=== PATIENT | male | born 1965 | race Caucasian/White ===

== ENCOUNTER → 2019-03-27 | Outpatient (CLI) | payer OTHER ==
[~2019-03-27] VITALS: Ht 185 cm; Wt 115.0 kg
[~2019-03-27] MED LIST: CATHETER FLUSH 10 ML SYR IV PRN
[2019-03-27 13:48] VITALS: BP 181/89
[2019-03-27 13:57] VITALS: BP 211/58
--- NOTE | 2019-03-27 20:59 | STRESS TEST ---
DATE OF SERVICE: 03/27/2019 LEXISCAN MYOVIEW STRESS TEST Baseline heart rate is 59, baseline blood pressure 181/89. Baseline EKG is sinus rhythm with no ischemic changes. In summary, the patient was injected with 9.67 mCi of technetium-99 Myoview and the resting images were obtained. Then, the patient received 0.4 mg of Lexiscan followed by 28.7 mCi of technetium-99 Myoview. Throughout the test, there were no EKG changes. The resting and stress images were reviewed and compared in the short axis, horizontal long axis, and vertical long axis views. Review of the images showed diaphragmatic attenuation with decreased uptake involving the mid to apical inferior wall and inferoseptum with mild reversibility. SSS is 6, SDS 6, TID value 0.96. On the gated images, the left ventricle appeared to be in normal size with normal contractility. Calculated ejection fraction 54%. CONCLUSION: 1. The patient tolerated Lexiscan well. 2. Diaphragmatic attenuation with mild ischemia involving the mid to apical inferior wall and inferoseptum. 3. Normal left ventricular size with normal contractility. Calculated ejection fraction 54%. Job ID: [id number] DocumentID: [id number] Dictated Date: 03/27/2019 15:41:35 Specimen Accessioner Date: 03/27/2019 20:58:58 Dictated By: BARRINGTON NEWMAN MD
== END ==
LOC: CARD 11:54
PROVIDERS: ATTEND Internal Medicine Cardiovascular Disease
DX: I25.9 Chronic ischemic heart disease, unspecified (principal); I11.9 Hypertensive heart disease without heart failure; E78.2 Mixed hyperlipidemia; I73.9 Peripheral vascular disease, unspecified; E66.9 Obesity, unspecified
CPT/HCPCS: 78452; 93017; 93306

== ENCOUNTER 2019-05-08 07:42 | Day surgery (SDC) | payer OTHER ==
[2019-05-08] VITALS (9 sets, daily range): BP systolic 115–156; BP diastolic 69–80
[~2019-05-08] VITALS: Ht 185 cm; Wt 113.0 kg
[2019-05-08] MEDS ORDERED: LIDOCAINE 1% INJ 20 ML 20 ML VIAL ONE (07:43)
[2019-05-08] MEDS ORDERED: HEParin (CATH LAB) 2,000 ML IV ONE (07:43)
[2019-05-08] MEDS ORDERED: NS IV 1000 ML 1,000 ML ONE (07:43)
[2019-05-08] MEDS ORDERED: NS IV 1000 ML 1,000 ML IV SCH ×2 (07:48→11:05)
[2019-05-08 08:18] LABS: HEMOGLOBIN 13.6 G/DL (13.3-17.7); MEAN PLATELET VOLUME 9.5 FL (7.4-10.4); RED CELL DISTRIBUTION WIDTH 13.3 % (10.0-14.5); WHITE BLOOD COUNT 5.5 10^3/uL (4.3-11.0)
[2019-05-08] MEDS ORDERED: SIMV20TA26 PO ×2 (08:21→09:52)
[2019-05-08] MEDS ORDERED: CETI10TA17 PO (08:21)
[2019-05-08] MEDS ORDERED: TELM40TA3 PO (08:21)
[2019-05-08 08:33] LABS: PROTHROMBIN TIME PATIENT 13.1 SEC (12.2-14.7)
[2019-05-08 08:39] LABS: ALANINE AMINOTRANSFERASE 43 U/L (0-55); ALBUMIN 4.6 GM/DL (3.2-4.5); ALKALINE PHOSPHATASE 55 U/L (40-136); BILIRUBIN,TOTAL 0.4 MG/DL (0.1-1.0); BUN/CREATININE RATIO 20; CALCIUM 9.7 MG/DL (8.5-10.1); CARBON DIOXIDE 25 MMOL/L (21-32); CHLORIDE 106 MMOL/L (98-107); CREATININE SERUM 0.88 MG/DL (0.60-1.30); GFR ESTIMATED > 60; GLUCOSE 95 MG/DL (70-105); POTASSIUM 4.7 MMOL/L (3.6-5.0); SODIUM 140 MMOL/L (135-145); TOTAL PROTEIN 7.3 GM/DL (6.4-8.2)
--- NOTE | 2019-05-08 08:41 | Diagnostic Imaging Report ---
INDICATION: Preop for heart catheterization. TIME OF EXAM: 8:04 AM No prior studies are available for comparison. FINDINGS: The heart size is normal. The pulmonary vascularity is unremarkable. The lungs are clear. No infiltrate, effusion or pneumothorax is detected. IMPRESSION: No acute cardiopulmonary process is detected. Dictated by: Dictated on workstation # [id number]
[2019-05-08] MEDS ORDERED: HEParin 1000 UNIT/ML (10ML VIAL) FOR BOLUS ONE (09:39)
[2019-05-08] MEDS ORDERED: fentaNYL INJECTION 100 MCG/2 ML AMP ONE (09:39)
[2019-05-08] MEDS ORDERED: MIDAZOLAM 5 MG/5 ML (VERSED) VIAL ONE (09:39)
[2019-05-08] MEDS ORDERED: VERAPAMIL 5 MG/2 ML (CALAN) VIAL IV ONE (09:39)
[2019-05-08] MEDS ORDERED: NITRO DRIP 25000 MCG/D5W 250 ML IV ONE (09:40)
--- NOTE | 2019-05-08 09:52 | NUR ---
SPOKE WITH THE PT, USED THE MEDICATION LIST SENT OVER FROM THE DR'S OFFICE AND CALLING [facility] AND DR. ERNST'S OFFICE TO COMPLETE THE MED REC. PT LISTED ZYRTEC, SIMVASTATIN AND TELMISARTAN HIS MEDS. SIMVASTATIN: WHEN I CALLED [facility] THEY LAST FILLED THIS ON 07-08-2018 #90 (AND THE FILL BEFORE THAT WAS ON 04-07-2018 #90). WHEN I WENT BACK TO INTERVIEW THE PT HE SAID HE DOES TAKE IT DAILY AND DOESNT KNOW WHEN [facility] HAS JUNE HIS LAST FILL DATE. HIS DID SPEAK UP AND SAY THAT SHE HAD PREVIOUSLY TAKEN SIMVASTATIN AND THINKS HE HAD BEEN USING HER BUILT UP STOCK SHE HAD. FOR THIS REASON I DID KEEP IT ON THE MED REC. 01-07-2019 TELMISARTAN: PT DID SAY HE WAS A LITTLE BEHIND ON THIS REFILL, BUT DOES NORMALLY TAKE IT EVERYDAY. OTC MED: ZYRTEC
--- NOTE | 2019-05-08 11:06 | Cardiac Procedure Note-CS/ASA ---
Pre-Procedure Note Pre-Op Procedure Note H&P Reviewed The H&P was reviewed, patient examined and no changes noted. Date H&P Reviewed: May 08, 2019 Time H&P Reviewed: 10:00 Conscious Sedation Pre-Proced Time 10:00 ASA Score 3 For ASA 3 and 4: Consider anesthesia and medical clearance. Also, for patients with a history of failed moderate sedation consider anesthesia. Airway Lungs Heart ASA score ASA 1: a normal healthy patient ASA 2: a patient with a mild systemic disease (mid diabetes, controlled hypertension, obesity x ASA 3: a patient with a severe systemic disease that limits activity (angina, COPD, prior Myocardial infarction) ASA 4: a patient with an incapacitating disease that is a constant threat to life (CHF, renal failure) ASA 5: a moribund patient not expected to survive 24 hrs. (ruptured aneurysm) ASA 6: a declared brain- patient whose organs are being harvested. For emergent operations, add the letter E after the classification Mallampati Classification Grade 3 Sedation Plan Analgesia, Amnesia, Plan communicated to team members, Discussed options with patient/fam, Discussed risks with patient/fam The patient is an appropriate candidate to undergo the planned procedure, sedation, and anesthesia. The patient immediately re-assessed prior to indication. BARRINGTON NEWMAN MD May 08, 2019 11:06 am
--- NOTE | 2019-05-08 11:07 | Discharge Inst-Post CATH ---
Discharge Inst-CATH/EP Problems Reviewed?: Yes Post Cardiac Cath/EP D/C Inst Follow Up/Plan Appointment with Dr. NEWMAN's office in 2-4 weeks <b>CARDIAC CATH/EP PROCEDURE DISCHARGE INSTRUCTIONS</b> ACTIVITY * Go Home directly and rest. * Limit activity of the leg (or wrist if it was used) for 7 days including aerobics, swimming, jogging, bicycling, etc. * Restrict stair-climbing for 7 days if possible, if not, climb up with your non-cath leg, then bring together on the same step. * Avoid lifting, pushing, pulling or excessive movement of the affected extremity for 7 days. * Customary sexual activity may be resumed after 2 days-use caution not to use a position that strains or causes pain to the affected extremity. * No driving for 24 hours. * NO SMOKING. * Avoid straining for bowel movements for 7 days. * Gentle walking on level ground is allowed. * Returning to work will depend on the type of procedure and the results. Your doctor will discuss this with you. CALL YOUR DOCTOR FOR ANY OF THE FOLLOWING: *If bleeding from the puncture site occurs- Apply gentle pressure to site with clean cloth and call your doctor or EMS. * If a knot or lump forms under the skin, increases in size, or causes pain. * If bruising appears to be worsening or moving further down your leg instead of disappearing. * Temperature above 101 F. CARE OF YOUR GROIN INCISION; * Bruising or purple discoloration of the skin near the puncture site is common. * You may shower only, no bathtub bathing for 5 days. Be careful to avoid slipping as your leg may feel stiff. * If a closure device was used on your femoral artery, please see the attached guide regarding care of the device and your leg. * Leave dressing on FOR 24 hours. CARE OF YOUR WRIST INCISION; * Bruising or purple discoloration of the skin near the puncture site is common. * You may shower. * DO NOT submerge wrist. * Leave dressing on FOR 24 hours. BARRINGTON NEWMAN MD May 08, 2019 11:07 am
--- NOTE | 2019-05-08 11:13 | Cardiac Cath Report ---
Cardiac Cath Report Physician (s)/Food And Beverage Director (s) Physician BARRINGTON NEWMAN MD Pre-Procedure Diagnosis Pre-Procedure Diagnosis: coronary artery disease Post-Procedure Note Procedure Start Date: May 08, 2019 Name of Procedure: Left heart catheterization Findings/Procedure Note PROCEDURE NOTE: After explaining the procedure to the patient, all pros and cons were explained, all questions were answered. The patient signed the consent and then he was placed on the cardiac catheterization laboratory. Groin was prepped SL fashion local anesthesia was used. Sheath placed in the right radial, Tiline catheter was used, advanced to the left ventricle, pressure measured, coronary angiogram was done. 3000 units of heparin were given, FL 3.5 guide was used, BMW wire was advanced in the circumflex artery, there was a borderline lesion in the left main and ostial circumflex, I was planning to do IVUS, catheter did not connect properly to the machine, we opened the second catheter, still did not recognize by the machine, it appear to be malfunctioning. Straightening the circumflex with the BMW wire made the lesion look significantly better. I decided to abort at that time At the end of the procedure the sheath was removed. Vascular band was used FINDINGS: Hemodynamics LV 108/17, end-diastolic pressure of 17 Aorta 106/63 mean of 83 ANATOMY: Left Main appear to have 50 percent distal stenosis, failed attempt to do IVUS due to machine malfunctioning Left Anterior Descending has mild to moderate disease nonobstructive disease Left Circumflex has 50 percent ostial stenosis Right Coronory Artery is dominant artery with 40 percent proximal stenosis, 50 percent mid stenosis LV Gram was not done, pressure was measured CONCLUSION: 1. 50 percent distal left main artery stenosis, failed IVUS due to machine malfunctioning 2. 50 percent ostial circumflex artery 3. 50 percent midright coronary artery stenosis, 40 percent proximal right coronary artery stenosis DISCUSSION AND RECOMMENDATION: Medical therapy is recommended, no intervention is warranted. Patient will require reevaluation with coronary angiogram and possible IVUS to the LAD in the future Anesthesia Type: Conscious Sedation Estimated blood loss (mL): 25 ml Contrast Amount: 112 ml Total Radiation Dose: 1155 mGy Post-Procedure Diagnosis Post-operative diagnosis: Coronary artery disease Hypertension Hyperlipidemia PVCs BARRINGTON NEWMAN MD May 08, 2019 11:13
[2019-05-08] MEDS ORDERED: ATOR10TA PO (11:36)
[2019-05-08] MEDS ORDERED: METO-351 PO (11:36)
[2019-05-08] MEDS ORDERED: ONDANSETRON 4 MG/2 ML (SDV) Z0FRAN IVP ONE (12:00)
== END 2019-05-08 16:05 | disposition home or self-care (01) ==
LOC: CATH 07:42 → CSD 11:30 → CATH 16:05
PROVIDERS: ATTEND Internal Medicine Cardiovascular Disease
DX: I25.10 Atherosclerotic heart disease of native coronary artery without angina pectoris (principal); I10 Essential (primary) hypertension; I73.9 Peripheral vascular disease, unspecified; I82.502 Chronic embolism and thrombosis of unspecified deep veins of left lower extremity; I49.3 Ventricular premature depolarization; E78.2 Mixed hyperlipidemia; E66.09 Other obesity due to excess calories; Z87.891 Personal history of nicotine dependence; Z68.33 Body mass index [BMI] 33.0-33.9, adult; Z88.2 Allergy status to sulfonamides; Z79.899 Other long term (current) drug therapy; Z83.3 Family history of diabetes mellitus; Z82.49 Family history of ischemic heart disease and other diseases of the circulatory system
CPT/HCPCS: 36415; 71045; 80053; 85027; 85610; 85730; 87081; 93458

== ENCOUNTER 2021-07-15 08:30 | Day surgery (SDC) | payer BC, OTHER ==
[~2021-07-15] VITALS: Ht 185.4 cm; Wt 117.2 kg
[2021-07-15] VITALS (9 sets, daily range): BP systolic 113–154; BP diastolic 67–85
--- NOTE | 2021-07-15 08:08 | Pre-Op Note & Conscious Sedat ---
Pre-Operative Progress Note H&P Reviewed The H&P was reviewed, patient examined and no changes noted. Date H&P Reviewed: Jul 15, 2021 Time H&P Reviewed: 08:08 Pre-Op Diagnosis: Coronary artery disease with angina pectoris Conscious Sedation Pre-Proced ASA Score 2 For ASA 3 and 4: Consider anesthesia and medical clearance. Also, for patients with a history of failed moderate sedation consider anesthesia. Airway Lungs Heart ASA score ASA 1: a normal healthy patient ASA 2: a patient with a mild systemic disease (mid diabetes, controlled hypertension, obesity ASA 3: a patient with a severe systemic disease that limits activity (angina, COPD, prior Myocardial infarction) ASA 4: a patient with an incapacitating disease that is a constant threat to life (CHF, renal failure) ASA 5: a moribund patient not expected to survive 24 hrs. (ruptured aneurysm) ASA 6: a declared brain- patient whose organs are being harvested. For emergent operations, add the letter E after the classification Mallampati Classification Grade 3 Sedation Plan Analgesia, Amnesia, Plan communicated to team members, Discussed options with patient/fam, Discussed risks with patient/fam The patient is an appropriate candidate to undergo the planned procedure, sedation, and anesthesia. The patient immediately re-assessed prior to indication. CM LAWSON JR, MD Jul 15, 2021 08:08
[~2021-07-15 08:30] MED LIST changes: +ACET325T49 PO; +ASPIRIN 81 MG CHEW (CHILDREN'S ASA) ONE; +ASPIRIN 81 MG CHEW (CHILDREN'S ASA) PO ONE; +ATOR10TA PO; +ATOR10TA66 PO; +CETI10TA17 PO; +CLN.1T PO; +HEParin (CATH LAB) 2,000 ML IV ONE; +HEParin 1000 UNIT/ML (10ML VIAL) FOR BOLUS ONE; +LIDOCAINE 1% INJ 50 ML (XYLOCAINE) VIAL ONE; +MELA5TAB19 PO; +METO-351 PO; +MIDAZOLAM 5 MG/5 ML (VERSED) VIAL ONE; +MTP25TSR PO; +MULT-1136 PO; +NITRO DRIP 25000 MCG/D5W 250 ML IV ONE; +NS IV 1000 ML 1,000 ML IV ONE; +OMG1KC PO; +SIMV20TA26 PO; +TELM1TAB37 PO; +TELM40TA6 PO; +VERAPAMIL 5 MG/2 ML (CALAN) VIAL IV ONE; +fentaNYL INJ 100 MCG/2 ML AMP ONE
[2021-07-15] MEDS ORDERED: ADENOSINE 6 MG/2 ML (ADENOCARD) VIAL IV ONE (09:14)
[2021-07-15] MEDS ORDERED: NS (IVPB) 250 ML ONE (09:14)
[2021-07-15] MEDS ORDERED: NS IV 1000 ML 1,000 ML IV SCH (10:15)
--- NOTE | 2021-07-15 10:24 | Cardiac Cath Report ---
CARDIAC CATHETERIZATION DATE OF PROCEDURE: 07/15/2021 INDICATION: Coronary artery disease with angina pectoris. HISTORY: The patient is a 56 year old male with known coronary artery disease involving the distal left main coronary artery and proximal and mid right coronary artery that has not required revascularization in the past. Due to some symptoms consistent with possible angina in the setting of known coronary artery disease, he is now referred for further evaluation with a cardiac catheterization. PROCEDURES PERFORMED: 1. Left heart catheterization with hemodynamic measurements. 2. Diagnostic [place] coronary angiography. 3. Fractional flow reserve measurement of distal left main coronary artery. 4. Intravascular ultrasound of left main coronary artery. 5. Fractional flow reserve measurement of right coronary artery. PROCEDURE DESCRIPTION: After informed consent and in the fasting state, left heart catheterization was performed through the right radial artery utilizing a 6 [place] system by percutaneous approach. A 5 [place] JR4 catheter was utilized to interrogate the left ventricle and right coronary artery. A 6 [place] CLS 3.5 guide catheter was utilized to interrogate the left coronary artery and for the FFR and IVUS of the left main coronary artery. A 6 [place] FR4 guide catheter was utilized for the FFR of the right coronary artery.. All catheters were exchanged over a guidewire. Following the procedure, a vascular band was applied to the radial artery access site and the sheath was removed with good hemostasis. RESULTS: HEMODYNAMICS: The aortic pressure was 106/63 mmHg. The left ventricular pressure was 121/0 mmHg with a left ventricular end-diastolic pressure of 16 mmHg. There was no significant pressure gradient upon pullback across aortic valve. CORONARY ANGIOGRAPHY: Left main coronary artery: There was a calcified 70% stenosis in the distal segment best seen in the cranial views. There was JOSSUE-3 flow. This appeared to form a trifurcation lesion with the left anterior descending, left circumflex and a ramus intermedius branch. Left anterior descending coronary artery: Free of significant disease. There was a large first diagonal branch that contained a long 70% stenosis in its proximal segment with JOSSUE-3 flow. Left circumflex coronary artery: This was essentially a large first obtuse marginal branch which was free of significant disease. Ramus intermedius branch: There was a moderate sized ramus intermedius branch which was free of significant disease. Right coronary artery: Dominant and there was an eccentric 60% stenosis in the proximal segment and another eccentric 60% stenosis in the mid segment with JOSSUE-3 flow. FRACTIONAL FLOW RESERVE OF LEFT MAIN CORONARY ARTERY: I successfully crossed the stenosis in the distal left main coronary artery with an FFR wire. The system was balanced and equalized. Approximately 200 mcg of coronary adenosine was then administered through the guide catheter. The minimum FFR was 1. This is not hemodynamically significant. INTRAVASCULAR ULTRASOUND OF LEFT MAIN CORONARY ARTERY: Intravascular ultrasound was carried out on the left main coronary artery through a 6 [place] CLS 3.5 guide catheter. Successfully crossed the stenosis with an FFR wire. I subsequently performed intravascular ultrasound with an [employer] IVUS catheter. There was a calcified lesion in the distal segment of the left main coronary artery. The minimum luminal diameter was 3.1 x 4.1 mm. The reference vessel diameter for normal vessel was 4.5 x 5.2 mm. This yields a percent diameter stenosis of approximately 69-79%. FRACTIONAL FLOW RESERVE OF RIGHT CORONARY ARTERY: I successfully crossed the stenosis in the proximal and mid right coronary arteries with an FFR wire. The system was balanced and equalized. Approximately 100 mcg of intracoronary adenosine was administered. The FFR was 0.87. This is not dynamically significant. No intervention was performed. IMPRESSION: 1. Normal central aortic pressure with elevated left ventricular end-diastolic pressure. 2. Moderate to severe two-vessel coronary artery disease involving the distal left main coronary artery, a diagonal branch and the dominant right coronary artery as outlined above. However, flow measurements of the right coronary artery lesions were nonsignificant. 2. Intravascular ultrasound of the stenosis in the distal left main coronary artery healed 0% diameter stenosis of approximately 70-80%. 3. His last known ejection fraction was 55-65% by echocardiogram performed on 03/27/2019. Certain portions of this document may have been dictated utilizing voice recognition technology. Inherent to this technology, typographical and grammatical errors may exist. As much as I am diligent to identify and correct these mistakes, some errors may remain in the document. CM LAWSON JR, MD Jul 15, 2021 10:24
== END 2021-07-15 13:45 | disposition home or self-care (01) ==
LOC: CATH 08:30 → SDC 10:23 → CATH 13:45
PROVIDERS: ATTEND Internal Medicine Cardiovascular Disease
DX: I25.10 Atherosclerotic heart disease of native coronary artery without angina pectoris (principal); I10 Essential (primary) hypertension; E78.5 Hyperlipidemia, unspecified; R22.42 Localized swelling, mass and lump, left lower limb; E66.9 Obesity, unspecified; E78.2 Mixed hyperlipidemia; Z79.899 Other long term (current) drug therapy; Z87.891 Personal history of nicotine dependence; Z68.34 Body mass index [BMI] 34.0-34.9, adult
CPT/HCPCS: 92978; 93458; 93571 ×2; C1753; C1887 ×2; C1894

== ENCOUNTER → 2021-08-30 | Outpatient (CLI) | payer BC ==
[~2021-08-30] MED LIST changes: -ASPIRIN 81 MG CHEW (CHILDREN'S ASA) ONE; -ASPIRIN 81 MG CHEW (CHILDREN'S ASA) PO ONE; -CATHETER FLUSH 10 ML SYR IV PRN; -HEParin (CATH LAB) 2,000 ML IV ONE; -HEParin 1000 UNIT/ML (10ML VIAL) FOR BOLUS ONE; -LIDOCAINE 1% INJ 50 ML (XYLOCAINE) VIAL ONE; -MIDAZOLAM 5 MG/5 ML (VERSED) VIAL ONE; -NITRO DRIP 25000 MCG/D5W 250 ML IV ONE; -NS IV 1000 ML 1,000 ML IV ONE; -VERAPAMIL 5 MG/2 ML (CALAN) VIAL IV ONE; -fentaNYL INJ 100 MCG/2 ML AMP ONE
== END ==
LOC: LABNPT 08:32
PROVIDERS: ATTEND Thoracic Surgery (Cardiothoracic Vascular Surgery)
DX: Z01.810 Encounter for preprocedural cardiovascular examination (principal); Z01.818 Encounter for other preprocedural examination; I25.10 Atherosclerotic heart disease of native coronary artery without angina pectoris; Z20.822 Contact with and (suspected) exposure to COVID-19
CPT/HCPCS: 87636

== ENCOUNTER 2021-09-10 23:52 | Emergency (ER) | payer BC ==
[~2021-09-10] VITALS: Ht 185 cm; Wt 115.2 kg
[2021-09-11 00:47] LABS: BASOPHILS # (AUTO) 0.1 10^3/uL (0.0-0.1); BASOPHILS % (AUTO) 0 % (0-10); EOSINOPHILS # (AUTO) 0.1 10^3/uL (0.0-0.3); EOSINOPHILS % (AUTO) 1 % (0-10); HEMATOCRIT 26 % (40-54); HEMOGLOBIN 8.4 g/dL (13.3-17.7); LYMPHOCYTES # (AUTO) 1.2 10^3/uL (1.0-4.0); LYMPHOCYTES % (AUTO) 7 % (12-44); MEAN CORPUSCULAR HEMOGLOBIN 32 pg (25-34); MEAN CORPUSCULAR HGB CONC 33 g/dL (32-36); MEAN CORPUSCULAR VOLUME 99 fL (80-99); MEAN PLATELET VOLUME 8.6 fL (9.0-12.2); MONOCYTES # (AUTO) 1.2 10^3/uL (0.0-1.0); MONOCYTES % (AUTO) 7 % (0-12); NEUTROPHILS # (AUTO) 14.8 10^3/uL (1.8-7.8); NEUTROPHILS % (AUTO) 79 % (42-75); PLATELET COUNT 503 10^3/uL (130-400); WHITE BLOOD COUNT 18.7 10^3/uL (4.3-11.0)
[2021-09-11 00:48] LABS: BILIRUBIN,URINE NEGATIVE (NEGATIVE); CLARITY,URINE CLEAR; COLOR,URINE YELLOW; GLUCOSE, URINE (UA) NEGATIVE (NEGATIVE); KETONES,URINE NEGATIVE (NEGATIVE); LEUKOCYTE ESTERASE ,URINE NEGATIVE (NEGATIVE); NITRITE,URINE NEGATIVE (NEGATIVE); PROTEIN,URINE NEGATIVE (NEGATIVE)
[2021-09-11 00:55] LABS: ALBUMIN 3.4 GM/DL (3.2-4.5); POTASSIUM 4.9 MMOL/L (3.6-5.0)
[2021-09-11 00:56] LABS: CALCIUM 9.1 MG/DL (8.5-10.1)
[2021-09-11 00:57] LABS: TOTAL PROTEIN 6.4 GM/DL (6.4-8.2)
[2021-09-11 00:59] LABS: BILIRUBIN,TOTAL 0.5 MG/DL (0.1-1.0); INR 1.5 (0.8-1.4); PROTHROMBIN TIME PATIENT 18.2 SEC (12.2-14.7)
[2021-09-11 01:01] LABS: CREATININE SERUM 0.81 MG/DL (0.60-1.30)
[2021-09-11 01:04] LABS: MAGNESIUM 2.3 MG/DL (1.6-2.4)
[2021-09-11 01:18] LABS: NEUTROPHILS % (MANUAL) 81 %
[2021-09-11 01:19] LABS: ANISOCYTOSIS SLIGHT; ATYPICAL LYMPHOCYTES 1 %; EOSINOPHILS % (MANUAL) 2 %; LYMPHOCYTES % (MANUAL) 6 %; METAMYELOCYTES % 2 %; MICROCYTOSIS SLIGHT; MONOCYTES % (MANUAL) 5 %; MYELOCYTES % 3 %; NUCLEATED RED BLOOD CELLS 3; PLATELET CLUMPS SOME CLUMPING SEEN; POIKILOCYTOSIS SLIGHT; POLYCHROMASIA SLIGHT
[2021-09-11 01:20] LABS: BACTERIA,URINE TRACE /HPF; HYALINE CASTS, URINE 0-2 /LPF; WBC,URINE 0-2 /HPF
[2021-09-11] MEDS ORDERED: fentaNYL INJ 100 MCG/2 ML AMP IVP STA (01:41)
--- NOTE | 2021-09-11 01:43 | ED Respiratory ---
General Chief Complaint: Respiratory Problems Stated Complaint: CP,COUGH,POST TRIPLE BYPASS Nursing Triage Note: TO ROOM PER WC W/ C/O SOB, AND CP. 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 PT HAD CABG DONE @ [facility] ON 08-31, AND WAS DC'D YESTERDAY. Source: patient History of Present Illness Date Seen by Provider: Sep 11, 2021 Time Seen by Provider: 00:01 Initial Comments PT ARRIVES VIA POV FROM HOME PT HAD 3 VESSEL CABG AT [facility] ON 08/31/21, AND DISMISSED TO HOME YESTERDAY 09/09/21. SURGERY WAS DONE BY DR. JIMENEZ / [facility] SURGEON. PT IS TO FOLLOW UP WITH DR. JOYA 09/30/21. PT ALSO IS TO FOLLOW WITH DR. NEWMAN LOCALLY, WELL DR. ERNST HIS PCP, AND HOME HEALTH WAS SET UP WELL. PT DID NOT HAVE AN PA PRIOR TO CABG. DID DEVELOP AFIB DURING HOSPITALIZATION PT WAS DISMISSED ON AUGMENTIN FOR RESPIRATORY INFECTION, PT STATES IT SHOWED INFECTION IN HIS SPUTUM. PT DENIES FEVER /SWEATS/CHILLS HAS HAD INCREASED COUGH AND SHORTNESS OF BREATH AND RIGHT ANTERIOR CHEST PAIN SINCE 1899 TONIGHT. C/O SEVERE PAIN IN CHEST WITH COUGHING, AND STATES IT FEELS LIKE SOMETHING IS MOVING IN HIS CHEST--STATES IT FEELS LIKE A BROKEN RIB ON THE RIGHT ANTERIOR CHEST. HAS HAD INCREASED LEG SWELLING WELL--LEFT LEG IS ALWAYS MORE SWOLLEN THAN RIGHT LEG DUE TO INJURY WITH SUBSEQUENT DVT IN LEFT LEG A TEEN. HAS HAD SOME SEROUS-TYPE WEEPING FROM LEG INCISIONS--BILATERAL THIGH WOUNDS, WITH RIGHT > LEFT. NO INCREASED PAIN, REDNESS OR SWELLING AROUND THE WOUNDS. NO NAUSEA/VOMITING, AND IS ABLE TO EAT AND DRINK PT IS URINATING NORMALLY--MORE THAN NORMAL SINCE BEING STARTED ON LASIX. WAS NOT DISMISSED ON HOME O2 NEW MEDICATIONS INCLUDE: AMIODARONE, LASIX, ELIQUIS, HYDROCODONE AND AUGMENTIN. METOPROLOL DOSE WAS LOWERED. PT HAS HAD COVID-19 VACCINE X 1--ASTON/ASTON--OVER 1 YEAR AGO NO BOOSTER VACCINE NO FLU VACCINE. PCP: ADDY ROA HELP DESK SPECIALIST: DR. NEWMAN Allergies and Home Medications Allergies Coded Allergies: Sulfa (Sulfonamide Antibiotics) (Unverified Allergy, Unknown, 03/27/19) Patient Home Medication List Home Medication List Reviewed: Yes Acetaminophen (Acetaminophen) 325 Mg Tablet, 650 MG PO PRN , (Reported) Entered as Reported by: TORRI ALLRED on 07/15/21801 Atorvastatin Calcium (Atorvastatin Calcium) 10 Mg Tablet, 10 MG PO HS, (Reported) Entered as Reported by: TORRI ALLRED on 07/15/21801 Clonidine HCl (Clonidine HCl) 0.1 Mg Tablet, 0.1 MG PO BID, (Reported) Entered as Reported by: TORRI ALLRED on 07/15/21801 Melatonin (Melatonin) 5 Mg Tab.rapdis, 10 MG PO HS, (Reported) Entered as Reported by: TORRI ALLRED on 07/15/21801 Metoprolol Succinate (Metoprolol Succinate) 25 Mg Tab.er.24h, 25 MG PO DAILY, (Reported) Entered as Reported by: TORRI ALLRED on 07/15/21801 Multivitamin (Multivitamin) 1 Each Tablet, 1 EACH PO DAILY, (Reported) Entered as Reported by: TORRI ALLRED on 07/15/21801 Omro 3 Polyunsat Fatty Acids (Fish Oil 1,000 mg Capsule) 1,000 Mg Cap, 3,000 MG PO DAILY, (Reported) Entered as Reported by: TORRI ALLRED on 07/15/21801 Telmisartan/Hydrochlorothiazid (Telmisartan-Hctz 80-25 mg Tab) 1 Each Tablet, 1 EACH PO DAILY, (Reported) Entered as Reported by: TORRI ALLRED on 07/15/21801 Review of Systems Review of Systems Constitutional: no symptoms reported; No chills, No diaphoresis, No dizziness, No fever EENTM: no symptoms reported Respiratory: see HPI, cough, short of breath Cardiovascular: see HPI, chest pain, edema, Hx of Intervention; No palpitations, No syncope; vascular heart diseas Gastrointestinal: no symptoms reported; No abdominal pain, No nausea, No vom iting Genitourinary: no symptoms reported Musculoskeletal: see HPI Skin: other (WEEPING FROM LEG INCISIONS) Psychiatric/Neurological: No Symptoms Reported Hematologic/Lymphatic: No Symptoms Reported Immunological/Allergic: no symptoms reported Past Lczkgml-Lkuntq-Zcduyg Hx Patient Social History Tobacco Use?: No Use of E-Cig and/or Vaping dev: No Substance use?: No Alcohol Use?: No Immunizations Up To Date Tetanus Booster (TDap): Less than 5yrs First/Initial COVID19 Vaccinat: 2020 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: [employer] Past Medical History Surgeries: Yes (CARDIAC CATHS; 3 VESSEL CABG 08/31/21 AT [facility]) Cardiac, CABG, Orthopedic Respiratory: No Currently Using CPAP: No Cardiac: Yes (DVT L LEG TEEN POST INJURY-CHRONIC LEG SWELLING L>R;) Atrial Fibrillation, Chronic Edema/Swelling, Coronary Artery Disease, Deep Vein Thrombosis, High Cholesterol, Hypertension Neurological: No Genitourinary: No Gastrointestinal: No Musculoskeletal: Yes (FX LEFT KNEE/FEMUR 1978) Arthritis, Fractures Endocrine: No HEENT: No Cancer: No Psychosocial: No Integumentary: No Blood Disorders: No Physical Exam Vital Signs - First Documented 09/11/21 09/11/21 00:00 04:10 Temp 36.6 Pulse 68 Resp 24 B/P (MAP) 129/68 (88) Pulse Ox 99 O2 Delivery Nasal Cannula O2 Flow Rate 2.00 Capillary Refill : Less Than 3 Seconds Height: '" Weight: lbs. oz. kg; 33.00 BMI Method: General Appearance: WD/WN, no apparent distress, other (HOLDING STUFFED ANIMAL TO CHEST, MOVES SLOWLY. MILDLY DYSPNEIC WITH MINIMAL EXERTION) HEENT: PERRL/EOMI Neck: normal inspection Respiratory: decreased breath sounds (IN BASES), other (MILDLY DYSPNEIC) Cardiovascular: regular rate, rhythm, no JVD, no murmur, other (CHEST WOUNDS DRESSINGS CLEAN/DRY/INTACT. ) Gastrointestinal: non tender, soft Extremities: normal range of motion, normal capillary refill, pedal edema (3+ EDEMA TO RIGHT LEG; 4+ EDEMA TO LEFT LEG; SURGICAL WOUNDS TO BILAT THIGHS WITH MILD SEROUS WEEPING--R > L; NO SURROUDING ERYTHEMA OR SIGNIFICANT TENDERNESS. OTHER LEG WOUNDS HEALING WITHOUT SIGNS OF INFECTION. 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 nml as tested, no motor/sensory deficits, alert, normal mood/affect, oriented x 3 Skin: normal color, warm/dry Focused Exam Sepsis Stage: Sepsis Possible Source: Pulmonary Time of Focused Exam: 01:40 Respiratory: Other (DIMINSHED IN BASES) Cardiovascular: Regular Rate, Rhythm, No Murmur Capillary Refill: Less Than 3 Seconds Skin: normal color, warm/dry Within 3hrs of presentation: Admin fluids, Admin ABX, Blood cultures prior to ABX's, Focus exam, Lactate level Progress/Results/Core Measures Suspected Sepsis SIRS Temperature: Pulse: 68 Respiratory Rate: 24 Laboratory Tests 09/11/21 00:30: White Blood Count 18.7H Blood Pressure 129 /68 Mean: 88 Laboratory Tests 09/11/21 00:30: Creatinine 0.81, INR Comment 1.5H, Platelet Count 503H, Total Bilirubin 0.5 Results/Orders Lab Results Laboratory Tests Test 09/11/21 00:30 09/11/21 00:40 Range/Units White Blood Count 18.7 H 4.3-11.0 10^3/uL Red Blood Count 2.61 L 4.30-5.52 10^6/uL Hemoglobin 8.4 L 13.3-17.7 g/dL Hematocrit 26 L 40-54 % Mean Corpuscular Volume 99 80-99 fL Mean Corpuscular Hemoglobin 32 25-34 pg Mean Corpuscular Hemoglobin Concent 33 32-36 g/dL Red Cell Distribution Width 14.8 H 10.0-14.5 % Platelet Count 503 H 130-400 10^3/uL Mean Platelet Volume 8.6 L 9.0-12.2 fL Immature Granulocyte % (Auto) 7 % Neutrophils (%) (Auto) 79 H 42-75 % Lymphocytes (%) (Auto) 7 L 12-44 % Monocytes (%) (Auto) 7 0-12 % Eosinophils (%) (Auto) 1 0-10 % Basophils (%) (Auto) 0 0-10 % Neutrophils # (Auto) 14.8 H 1.8-7.8 10^3/uL Lymphocytes # (Auto) 1.2 1.0-4.0 10^3/uL Monocytes # (Auto) 1.2 H 0.0-1.0 10^3/uL Eosinophils # (Auto) 0.1 0.0-0.3 10^3/uL Basophils # (Auto) 0.1 0.0-0.1 10^3/uL Immature Granulocyte # (Auto) 1.3 H 0.0-0.1 10^3/uL Neutrophils % (Manual) 81 % Lymphocytes % (Manual) 6 % Monocytes % (Manual) 5 % Eosinophils % (Manual) 2 % Metamyelocytes % 2 % Myelocytes % 3 % Nucleated Red Blood Cells 3 Atypical Lymphocytes 1 % Clumped Platelets SOME CLUMPING SEEN Polychromasia SLIGHT Poikilocytosis SLIGHT Anisocytosis SLIGHT Microcytosis SLIGHT Prothrombin Time 18.2 H 12.2-14.7 SEC INR Comment 1.5 H 0.8-1.4 Activated Partial Thromboplast Time 34 24-35 SEC Sodium Level 136 135-145 MMOL/L Potassium Level 4.9 3.6-5.0 MMOL/L Chloride Level 101 98-107 MMOL/L Carbon Dioxide Level 24 21-32 MMOL/L Anion Gap 11 5-14 MMOL/L Blood Urea Nitrogen 18 7-18 MG/DL Creatinine 0.81 0.60-1.30 MG/DL Estimat Glomerular Filtration Rate 102 BUN/Creatinine Ratio 22 Glucose Level 127 H 70-105 MG/DL Calcium Level 9.1 8.5-10.1 MG/DL Corrected Calcium 9.6 8.5-10.1 MG/DL Magnesium Level 2.3 1.6-2.4 MG/DL Total Bilirubin 0.5 0.1-1.0 MG/DL Aspartate Amino Transf (AST/SGOT) 46 H 5-34 U/L Alanine Aminotransferase (ALT/SGPT) 89 H 0-55 U/L Alkaline Phosphatase 57 40-136 U/L Troponin I 0.238 H <0.028 NG/ML B-Type Natriuretic Peptide 264.6 H <100.0 PG/ML Total Protein 6.4 6.4-8.2 GM/DL Albumin 3.4 3.2-4.5 GM/DL Urine Color YELLOW Urine Clarity CLEAR Urine pH 6.0 5-9 Urine Specific [place] >=1.030 1.016-1.022 Urine Protein NEGATIVE NEGATIVE Urine Glucose (UA) NEGATIVE NEGATIVE Urine Ketones NEGATIVE NEGATIVE Urine Nitrite NEGATIVE NEGATIVE Urine Bilirubin NEGATIVE NEGATIVE Urine Urobilinogen 0.2 < = 1.0 MG/DL Urine Leukocyte Esterase NEGATIVE NEGATIVE Urine RBC (Auto) TRACE-I H NEGATIVE Urine RBC 2-5 H /HPF Urine WBC 0-2 /HPF Urine Squamous Epithelial Cells NONE /HPF Urine Crystals NONE /LPF Urine Bacteria TRACE /HPF Urine Casts PRESENT /LPF Urine Hyaline Casts 0-2 H /LPF Urine Mucus MODERATE H /LPF Urine Culture Indicated NO Influenza Type A (RT-PCR) Not Detected Not Detecte Influenza Type B (RT-PCR) Not Detected Not Detecte SARS-CoV-2 RNA (RT-PCR) Not Detected Not Detecte My Orders Orders - SEAN ARVIZU DO Ed Iv/Invasive Line Start (09/11/21 00:02) Ekg Tracing (09/11/21 00:02) O2 (09/11/21 00:02) Monitor-Rhythm Ecg Trace Only (09/11/21 00:02) Chest 1 View, Ap/Pa Only (09/11/21 00:02) Bnp Anastasia (09/11/21 00:02) Cbc With Automated Diff (09/11/21 00:02) Comprehensive Metabolic Panel (09/11/21 00:02) Magnesium (09/11/21 00:02) Protime With Inr (09/11/21 00:02) Partial Thromboplastin Time (09/11/21 00:02) Ua Culture If Indicated (09/11/21 00:02) Troponin I Anastasia (09/11/21 00:02) Covid 19 Inhouse Test (09/11/21 00:02) Influenza A And B By Pcr (09/11/21 00:02) Isolation Central Supply Req (09/11/21 00:02) Manual Differential (09/11/21 00:30) Ct Angio Chest W (09/11/21 01:39) Fentanyl Inj (Sublimaze Injection) (09/11/21 01:41) Cefepime Injection (Maxipime Injection) (09/11/21 01:45) Ed Iv/Invasive Line Start (09/11/21 01:43) Ns Iv 1000 Ml (Sodium Chloride 0.9%) (09/11/21 01:45) Iohexol Injection (Omnipaque 350 Mg/Ml 1 (09/11/21 02:30) Sodium Chloride Flush (Catheter Flush Sy (09/11/21 02:30) Ns (Ivpb) (Sodium Chloride 0.9% Ivpb Bag (09/11/21 02:30) Fentanyl Inj (Sublimaze Injection) (09/11/21 03:00) Medications Given in ED Current Medications Medications Dose Ordered Sig/Charlie Route Start Time Stop Time Status Last Admin Dose Admin Cefepime HCl 1000 mg/Sodium Chloride 50 ml @ 100 mls/hr ONCE ONCE IV 09/11/21 01:45 09/11/21 02:14 DC 09/11/21 02:37 100 MLS/HR Iohexol 100 ml ONCE ONCE IV 09/11/21 02:30 09/11/21 02:31 DC 09/11/21 02:31 90 ML Sodium Chloride 10 ml NEEDED PRN IV 09/11/21 02:30 09/11/21 04:17 DC 09/11/21 02:31 10 ML Sodium Chloride 100 ml ONCE ONCE IV 09/11/21 02:30 09/11/21 02:31 DC 09/11/21 02:31 80 ML Vital Signs/I&O 09/11/21 09/11/21 00:00 04:10 Temp 36.6 Pulse 68 68 Resp 24 22 B/P (MAP) 129/68 (88) 125/58 Pulse Ox 99 99 O2 Delivery Nasal Cannula Nasal Cannula O2 Flow Rate 2.00 Capillary Refill : Less Than 3 Seconds Blood Pressure Mean: 88 Progress Note : Progress Note COVID AND FLU TESTING DONE SEPSIS PROTOCOL INITIATED GIVEN IV FLUIDS AND ANTIBIOTICS GIVEN FENTANYL FOR PAIN NO DETERIORATION IN PT'S CONDITION DURING ER STAY ECG Initial ECG Impression Date: Sep 11, 2021 Initial ECG Impression Time: 00:15 Initial ECG Rate: 66 Initial ECG Rhythm: Normal Sinus Initial ECG Comparisson: No Previous ECG Available Comment INFERIOR Q WAVES Diagnostic Imaging Comments CXR--EFFUSION AND/OR INFILTRATE LEFT BASE. PENDING RADIOLOGIST REVIEW CT CHEST ANGIOGRAM--PER [facility] VIA FAX AT 1893 -NO PE -LLL CONSOLIDATION. DEBRIS NOTED ALONG MAINSTEM BRONCHUS. MILD LLL CONSOLIDATION MAY BE DUE TO LEFT PLEURAL EFFUSIONG, BUR FINDINGS ARE FAVORED TO BE RELATE TO ASPIRATION/INFECTION -FLUID COLLECTION UNDERLYING THE ANTERIOR CHEST 2.5 X 8.1 X 5.4 CM; APPEARS INFERIORLY ALONG THE CHEST WITH SMALL FOCUS OF GAS NOTED. FINDINGS MAY BE POST SURGICAL IN NATURE. THIS MAY BE STERILE OR INFECTED. -PERICARDIAL EFFUSION 7 MM. Reviewed: Reviewed by Me Departure Communication (Admissions) 013--CALLED JANET, MESSAGE LEFT 013--SPOKE WITH DR. NEWMAN, LAB AND CT PENDING. WILL UPDATE HIM IF PT IS ABLE TO BE ADMITTED HERE. 0144--CALLED [facility]PITAL[facility] 0150--SPOKE WITH DR. FOSTER, HOSPITALIST, ACCEPTS PT FOR ADMIT/TRANSFER. ALL FILMS CLOUDED TO JANET. 0302--CALLED [facility], MESSAGE LEFT. [facility] LATER CALLED BACK WITH BED ASSIGNMENT AND EMS WAS CONTACTED FOR TRANSPORT Impression Primary Impression: S/P RECENT CABG Additional Impressions: Post-op pneumonia RECENT DX OF ATRIAL FIBRILLATION Disposition: XFER SHT-TRM HOSP Condition: Stable Transfer Transfer Reason: Exceeds level of care Transfer Facility: [place], [place] Method of Transfer: EMS Departure-Patient Inst. Referrals: NERY ERNST DO (PCP/Family) Primary Care Physician SEAN ARVIZU DO Sep 11, 2021 01:43
[2021-09-11] MEDS ORDERED: NS IV 1000 ML 1,000 ML IV SCH (01:45)
[2021-09-11] MEDS ORDERED: CEFEPIME INJECTION 1,000 MG in NS (IVPB) 50 ML IV ONE (01:45)
[2021-09-11] MEDS ORDERED: CATHETER FLUSH 10 ML SYR IV PRN (02:30)
[2021-09-11] MEDS ORDERED: NS 100 ML (IVPB) BAG IV ONE (02:30)
[2021-09-11] MEDS ORDERED: IOHEXOL 350 MG/ML 100 ML (OMNIPAQUE 350) VIAL IV ONE (02:30)
[2021-09-11] MEDS ORDERED: fentaNYL INJ 100 MCG/2 ML AMP IVP ONE (03:00)
[2021-09-11 04:10] VITALS: BP 125/58
--- NOTE | 2021-09-11 06:48 | Diagnostic Imaging Report ---
EXAMINATION: CT angiography of the chest. TECHNIQUE: Contrast enhanced thin section helical images were obtained through the chest with intravenous contrast timed for the optimal opacification of the arterial structures per CTA protocol. Post-processing, reconstructions and interpretation of angiographic images of the vessels was performed. 3D MIP reconstructions were performed and reviewed. All CT scans use one or more of the following dose optimizing techniques: automated exposure control, MA and/or KvP adjustment based on a patient size and exam type, or iterative reconstruction. HISTORY: Chest pain and cough COMPARISON: None available. FINDINGS: There is no pulmonary embolism. There is a small left pleural effusion with overlying atelectasis or pneumonia. There is a 2.5 x 8.1 x 5.4 cm left anterior chest fluid collection immediately underneath the rib cage. There is a small focus of gas in the anterior mediastinum. There has been coronary artery bypass grafting. There is dehiscence of the lower portion of the sternum. No pneumothorax. No suspicious nodules. There is no axillary or supraclavicular lymphadenopathy. There is no mediastinal lymphadenopathy. Heart size is normal. There are moderate coronary artery calcifications. There is a trace pericardial effusion. Aorta is normal in caliber. Limited views of the upper abdomen are unremarkable. There are no suspicious osseus lesions. IMPRESSION: 1. No pulmonary embolism. 2. Fluid collection underneath rib cage in the left anterior chest with small focus of pneumomediastinum. Differential includes abscess or seroma. 3. Dehiscence of the sternum in the lower portion status post median sternotomy. No osseous erosions are seen to indicate osteomyelitis. Dictated by: Dictated on workstation # [id number]
--- NOTE | 2021-09-11 07:05 | Diagnostic Imaging Report ---
INDICATION: Dyspnea, chest pain. EXAMINATION: Chest 09/11/2021 COMPARISON: 05/08/2019 FINDINGS: There is mild cardiomegaly. There is a question of infiltrate at the left lung base. Remaining lungs clear. No pneumothorax or effusions. Sternotomy wires noted. IMPRESSION: 1. Question left base infiltrate. Dictated by: Dictated on workstation # [id number]
== END 2021-09-11 04:16 | disposition short-term general hospital (02) ==
LOC: EDUNIT# 23:52 → ER 23:54
DX: J95.89 Other postprocedural complications and disorders of respiratory system, not elsewhere classified (principal); I48.91 Unspecified atrial fibrillation; R60.0 Localized edema; I10 Essential (primary) hypertension; Z95.1 Presence of aortocoronary bypass graft; Z87.01 Personal history of pneumonia (recurrent); Z86.718 Personal history of other venous thrombosis and embolism; Z20.822 Contact with and (suspected) exposure to COVID-19; Z28.311 Partially vaccinated for COVID-19; Z79.899 Other long term (current) drug therapy
CPT/HCPCS: 36415; 71045; 71275; 80053; 81000; 83735; 83880; 84484; 85007; 85027; 85610; 85730; 87636; 93005

== ENCOUNTER 2021-11-05 10:26 | Outpatient (RCR) | payer BC | END 2021-11-07 | disposition home or self-care (01) | LOC: CR 10:26 | PROVIDERS: ATTEND Internal Medicine Cardiovascular Disease | DX: Z29.8 Encounter for other specified prophylactic measures (principal); I21.9 Acute myocardial infarction, unspecified; Z95.1 Presence of aortocoronary bypass graft | CPT/HCPCS: 93798 ==

== ENCOUNTER 2021-11-24 11:34 | Outpatient (RCR) | payer BC | END 2021-12-08 | disposition home or self-care (01) | LOC: CR 11:34 | PROVIDERS: ATTEND Internal Medicine Cardiovascular Disease | DX: Z29.8 Encounter for other specified prophylactic measures (principal); Z95.1 Presence of aortocoronary bypass graft | CPT/HCPCS: 93798 ==

== ENCOUNTER 2021-12-02 17:57 | Emergency (ER) | payer BC ==
[~2021-12-02] VITALS: Ht 185.4 cm; Wt 108.8 kg
[2021-12-02 19:32] VITALS: BP 166/80
--- NOTE | 2021-12-02 20:57 | ED General ---
General Chief Complaint: Post OP Complications/Pain Stated Complaint: POST OP CABG 08/31 - KNOT ON CHEST Nursing Triage Note: PATIENT STATES THAT HE HAD QUAD CABG IN AUGUST AT [facility]. HE WAS READMITTED TO [facility] 1 1/2 DAYS AFTER D/C D/T PNEUMONIA. HE STATES THAT HE COUGHED SO MUCH THAT THE WIRE AT THE TOP OF THE INCISION HAS "MOVED AND FLIPPED UP" SINCE THAT TIME. THIS AFTERNOON HE NOTICED A BUMP AT THAT SITE. HE DENIES CHEST PAIN OR ANY OTHER SYMPTOMS. Source of Information: Patient Exam Limitations: No Limitations History of Present Illness Date Seen by Provider: Dec 02, 2021 Time Seen by Provider: 20:31 Initial Comments Here with report of wire that is prominent from sternotomy from CABG that was done on on 08/31. The wires not broke through the skin. This is a known wire. He sneezed a few times over the last few days due to allergies and his was concerned about the wire. It has moved in the past. He is denying any pain or complaint. There is no fevers. This has been seen by Dr. Mora in the past. Timing/Duration: 1-2 Days Severity: Mild Associated Systoms: No Chest Pain, No Cough, No Fever/Chills Allergies and Home Medications Allergies Coded Allergies: Sulfa (Sulfonamide Antibiotics) (Unverified Allergy, Unknown, 03/27/19) Patient Home Medication List Home Medication List Reviewed: Yes Acetaminophen (Acetaminophen) 325 Mg Tablet, 650 MG PO PRN , (Reported) Entered as Reported by: TORRI ALLRED on 07/15/21801 Atorvastatin Calcium (Atorvastatin Calcium) 10 Mg Tablet, 10 MG PO HS, (Reported) Entered as Reported by: TORRI ALLRED on 07/15/21801 Clonidine HCl (Clonidine HCl) 0.1 Mg Tablet, 0.1 MG PO BID, (Reported) Entered as Reported by: TORRI ALLRED on 07/15/21801 Melatonin (Melatonin) 5 Mg Tab.rapdis, 10 MG PO HS, (Reported) Entered as Reported by: TORRI ALLRED on 07/15/21801 Metoprolol Succinate (Metoprolol Succinate) 25 Mg Tab.er.24h, 25 MG PO DAILY, (R eported) Entered as Reported by: TORRI ALLRED on 07/15/21801 Multivitamin (Multivitamin) 1 Each Tablet, 1 EACH PO DAILY, (Reported) Entered as Reported by: TORRI ALLRED on 07/15/21801 Kennedy 3 Polyunsat Fatty Acids (Fish Oil 1,000 mg Capsule) 1,000 Mg Cap, 3,000 MG PO DAILY, (Reported) Entered as Reported by: TORRI ALLRED on 07/15/21801 Telmisartan/Hydrochlorothiazid (Telmisartan-Hctz 80-25 mg Tab) 1 Each Tablet, 1 EACH PO DAILY, (Reported) Entered as Reported by: TORRI ALLRED on 07/15/21801 Review of Systems Review of Systems Constitutional: No chills, No fever Respiratory: see HPI; No cough, No short of breath Cardiovascular: see HPI; No chest pain Skin: No change in color, No lesions Past Bzwvevr-Rbtrkd-Bncuew Hx Patient Social History Tobacco Use?: No Substance use?: No Alcohol Use?: No Immunizations Up To Date Tetanus Booster (TDap): Less than 5yrs Influenza Vaccine Up-to-Date: Yes; Up-to-Date First/Initial COVID19 Vaccinat: unknown date Second COVID19 Vaccination Amando: unknown date Past Medical History Surgery/Hospitalization HX: cabg september 01 Surgeries: Yes (CARDIAC CATHS; 3 VESSEL CABG 08/31/21 AT [facility]) Cardiac, CABG, Orthopedic Respiratory: No Currently Using CPAP: No Cardiac: Yes (DVT L LEG TEEN POST INJURY-CHRONIC LEG SWELLING L>R;) Atrial Fibrillation, Chronic Edema/Swelling, Coronary Artery Disease, Deep Vein Thrombosis, High Cholesterol, Hypertension Neurological: No Genitourinary: No Gastrointestinal: No Musculoskeletal: Yes (FX LEFT KNEE/FEMUR 1978) Arthritis, Fractures Endocrine: No HEENT: No Cancer: No Psychosocial: No Integumentary: No Blood Disorders: No Physical Exam Vital Signs Vital Signs - First Documented 12/02/21 19:32 Temp 36.7 Pulse 69 Resp 18 B/P (MAP) 166/80 (108) Pulse Ox 98 O2 Delivery Room Air Capillary Refill : Less Than 3 Seconds Height, Weight, BMI Height: '" Weight: lbs. oz. kg; 31.00 BMI Method: General Appearance: No Apparent Distress, WD/WN Respiratory: Lungs Clear, No Respiratory Distress, Other (Upper sternotomy wire prominent under skin on the right side but not poking through without surrounding erythema or any other infective findings) Cardiovascular: Regular Rate, Rhythm, No Murmur Neurologic/Psychiatric: Alert, Oriented x3 Progress/Results/Core Measures Suspected Sepsis SIRS Temperature: Pulse: 69 Respiratory Rate: 18 Blood Pressure 166 /80 Mean: 108 Results/Orders Vital Signs/I&O 12/02/21 19:32 Temp 36.7 Pulse 69 Resp 18 B/P (MAP) 166/80 (108) Pulse Ox 98 O2 Delivery Room Air Capillary Refill : Less Than 3 Seconds Blood Pressure Mean: 108 Progress Note : Progress Note Seen and evaluated. No concerning findings on exam. We believe the wire is well-seated and there is no sign of infection or of it trying to push through the skin. He was comforted. Discharged home with return precautions. Patient verbalized understanding instructions and agreement with plan. Departure Impression Primary Impression: Postoperative pain Disposition: 01 HOME, SELF-CARE Condition: Improved Departure-Patient Inst. Decision time for Depature: 20:57 Referrals: JOE ALMANZAR MD (PCP/Family) Primary Care Physician Patient Instructions: Postoperative Pain (DC) Add. Discharge Instructions: There is no concern about the wire currently. If the wire began to poke through the skin, followed back up with Dr. Walters or Dr. Mora. Return for other concerns as needed. MAURA ARREDONDO MD Dec 02, 2021 20:57
== END 2021-12-02 21:10 | disposition home or self-care (01) ==
LOC: EDUNIT# 17:57 → ER 17:59
DX: G89.18 Other acute postprocedural pain (principal)
CPT/HCPCS: 99281

== ENCOUNTER → 2022-09-14 | Outpatient (CLI) | payer BC | LOC: CARD 08:17 | PROVIDERS: ATTEND Internal Medicine Cardiovascular Disease | DX: I35.1 Nonrheumatic aortic (valve) insufficiency (principal); I11.9 Hypertensive heart disease without heart failure | CPT/HCPCS: 93306 ==

== ENCOUNTER → 2022-09-26 | Outpatient (CLI) | payer BC ==
[~2022-09-26] VITALS: Ht 180 cm; Wt 118.0 kg
[~2022-09-26] MED LIST changes: +CATHETER FLUSH 10 ML SYR IVP PRN
[2022-09-26 09:08] VITALS: BP 201/77
--- NOTE | 2022-09-27 08:23 | Cardiology Stress Test Report ---
Stress Test Report Date of Procedure/Referring: Date of Procedure: Sep 27, 2022 PCP Kt Antunez MD Admitting Physician Admitting Physician: Attending Physician: Barrington Walters MD Baseline Heart Rate: 54 Baseline Blood Pressure: Blood Pressure Systolic: 201 Blood Pressure Diastolic: 77 Vital Signs Date Time Temp Pulse Resp B/P (MAP) Pulse Ox O2 Delivery O2 Flow Rate FiO2 09/26/22 09:08 88 16 201/77 (118) 97 Room Air Baseline Vital Signs Vital Signs Date Time Temp Pulse Resp B/P (MAP) Pulse Ox O2 Delivery O2 Flow Rate FiO2 09/26/22 09:08 88 16 201/77 (118) 97 Room Air Baseline EKG: Baseline EKG: NSR Summary: After explaining the procedure and details to the patient, he signed the consent and was brought to the stress nuclear laboratory. Patient exercised on standard Gurpreet protocol, EKG, heart rate and blood pressure were monitored continuously, resting and stress doses of radio tracer were injected, imaging was acquired and reviewed in the short axis, horizontal long axis and vertical long axis views Patient was able to exercise for a total of 5 minutes on Gurpreet protocol, METs 7 Maximum heart rate 144 Maximum blood pressure 256/112 Stress EKG, Minimal nondiagnostic changes Recovery EKG, Return to baseline TID: 1.01 SSS: 3 SDS: 3 EF: 54 Conclusion: Fair exercise tolerance for 5 minutes on standard Gurpreet protocol 7 METS achieving 89% of maximum expected heart rate Appropriate heart rate response to exercise with hypertensive response to exercise with peak blood pressure 256/112 return to baseline during recovery Nondiagnostic EKG changes with exercise return to baseline during recovery Diaphragmatic attenuation with mild decrease uptake at the mid to apical inferior wall with mild reversibility overall borderline stress test Normal left ventricular size, ejection fraction 54% BARRINGTON WALTERS MD Sep 27, 2022 08:23
== END ==
LOC: CARD 06:33
PROVIDERS: ATTEND Internal Medicine Cardiovascular Disease
DX: I10 Essential (primary) hypertension (principal)
CPT/HCPCS: 78452; 93017; A9502

== ENCOUNTER 2022-11-02 07:52 | Day surgery (SDC) | payer OTHER, BC ==
[2022-11-02] VITALS (12 sets, daily range): BP systolic 110–141; BP diastolic 53–72
[~2022-11-02] VITALS: Ht 185.4 cm; Wt 118.0 kg
[~2022-11-02 07:52] MED LIST changes: -CATHETER FLUSH 10 ML SYR IVP PRN
[2022-11-02] MEDS ORDERED: NS IV 1000 ML 1,000 ML ONE (07:56)
[2022-11-02] MEDS ORDERED: HEParin (CATH LAB) 2,000 ML IV ONE (07:56)
[2022-11-02] MEDS ORDERED: LIDOCAINE 1% INJ 20 ML VIAL ONE (07:56)
[2022-11-02] MEDS ORDERED: NS IV 1000 ML 1,000 ML IV SCH ×2 (08:00→11:45)
--- NOTE | 2022-11-02 08:58 | Diagnostic Imaging Report ---
INDICATION: Abnormal stress test. COMPARISON: 09/11/2021. FINDINGS: The sternal wires are midline. The heart size is upper limits but decreased. The vascular congestion present on the prior exam has resolved. The previous edema or infiltrates in the perihilar and left basilar distribution have resolved. Today, the lungs are clear. No pleural fluid. No pneumothorax. IMPRESSION: Clear chest at followup. Dictated by: Dictated on workstation # [id number]
[2022-11-02 09:02] LABS: HEMATOCRIT 41 % (40-54); HEMOGLOBIN 14.3 g/dL (13.3-17.7); MEAN CORPUSCULAR HEMOGLOBIN 33 pg (25-34); MEAN CORPUSCULAR HGB CONC 35 g/dL (32-36); MEAN CORPUSCULAR VOLUME 95 fL (80-99); PLATELET COUNT 297 10^3/uL (130-400); WHITE BLOOD COUNT 7.6 10^3/uL (4.3-11.0)
[2022-11-02 09:04] LABS: BILIRUBIN,URINE NEGATIVE (NEGATIVE); CLARITY,URINE CLEAR; COLOR,URINE YELLOW; GLUCOSE, URINE (UA) NEGATIVE (NEGATIVE); KETONES,URINE NEGATIVE (NEGATIVE); LEUKOCYTE ESTERASE ,URINE NEGATIVE (NEGATIVE); NITRITE,URINE NEGATIVE (NEGATIVE); PROTEIN,URINE NEGATIVE (NEGATIVE)
[2022-11-02] MEDS ORDERED: POTA-330 PO (09:10)
[2022-11-02] MEDS ORDERED: HYDR25TA4 PO (09:10)
[2022-11-02] MEDS ORDERED: LOSA100T58 PO (09:10)
[2022-11-02] MEDS ORDERED: ASPI-999 PO (09:10)
[2022-11-02] MEDS ORDERED: FURO40TA4 PO (09:10)
[2022-11-02] MEDS ORDERED: TEST1.257 TD (09:10)
[2022-11-02 09:16] LABS: AMORPHOUS SEDIMENT,UR FEW AMOR URATES /LPF; BACTERIA,URINE NEGATIVE /HPF; SQUAMOUS EPITHELIAL CELL,UR 0-2 /HPF; WBC,URINE 0-2 /HPF
[2022-11-02 09:20] LABS: PROTHROMBIN TIME PATIENT 13.4 SEC (12.2-14.7)
[2022-11-02 09:29] LABS: ALBUMIN 4.5 GM/DL (3.2-4.5); BILIRUBIN,TOTAL 0.5 MG/DL (0.1-1.0); CALCIUM 10.4 MG/DL (8.5-10.1); CREATININE SERUM 0.9 MG/DL (0.60-1.30); POTASSIUM 4.8 MMOL/L (3.6-5.0); TOTAL PROTEIN 8.1 GM/DL (6.4-8.2)
[2022-11-02] MEDS ORDERED: MIDAZOLAM 5 MG/5 ML (VERSED) VIAL ONE (09:52)
[2022-11-02] MEDS ORDERED: fentaNYL INJ 100 MCG/2 ML AMP ONE (09:52)
--- NOTE | 2022-11-02 10:02 | Cardiac Procedure Note-CS/ASA ---
Pre-Procedure Note Pre-Op Procedure Note Date of Available H&P: Nov 02, 2022 Date H&P Reviewed: Nov 02, 2022 Time H&P Reviewed: 10:02 History & Physical: H&P Reviewed, Patient Examed, No changes noted Pre-Operative Diagnosis: Coronary artery disease with angina pectoris Moderate Sedation PreProcedure Time 10:02 ASA Score 3 Airway Lungs Heart ASA score ASA 1: a normal healthy patient ASA 2: a patient with a mild systemic disease (mid diabetes, controlled hypertension, obesity ASA 3: a patient with a severe systemic disease that limits activity (angina, COPD, prior Myocardial infarction) ASA 4: a patient with an incapacitating disease that is a constant threat to life (CHF, renal failure) ASA 5: a moribund patient not expected to survive 24 hrs. (ruptured aneurysm) ASA 6: a declared brain- patient whose organs are being harvested. For emergent operations, add the letter E after the classification Mallampati Classification Grade 3 Sedation Plan Analgesia, Amnesia, Plan communicated to team members, Discussed options with patient/fam, Discussed risks with patient/fam The patient is an appropriate candidate to undergo the planned procedure, sedation, and anesthesia. The patient immediately re-assessed prior to indication. BARRINGTON NEWMAN MD Nov 02, 2022 10:02
[2022-11-02] MEDS ORDERED: HEParin 1000 UNIT/ML (10ML VIAL) FOR BOLUS ONE (10:40)
--- NOTE | 2022-11-02 11:33 | Discharge Inst-Post CATH ---
Discharge Inst-CATH/EP Problems Reviewed?: Yes Post Cardiac Cath/EP D/C Inst Follow Up/Plan Appointment with Dr. Walters's office in 2 to 4 weeks <b>CARDIAC CATH/EP PROCEDURE DISCHARGE INSTRUCTIONS</b> ACTIVITY * Go Home directly and rest. * Limit activity of the leg (or wrist if it was used) for 7 days including aer obics, swimming, jogging, bicycling, etc. * Restrict stair-climbing for 7 days if possible, if not, climb up with your non-cath leg, then bring together on the same step. * Avoid lifting, pushing, pulling or excessive movement of the affected extremi ty for 7 days. * Customary sexual activity may be resumed after 2 days-use caution not to use a position that strains or causes pain to the affected extremity. * No driving for 24 hours. * NO SMOKING. * Avoid straining for bowel movements for 7 days. * Gentle walking on level ground is allowed. * Returning to work will depend on the type of procedure and the results. Your doctor will discuss this with you. CALL YOUR DOCTOR FOR ANY OF THE FOLLOWING: *If bleeding from the puncture site occurs- Apply gentle pressure to site with clean cloth and call your doctor or EMS. * If a knot or lump forms under the skin, increases in size, or causes pain. * If bruising appears to be worsening or moving further down your leg instead of disappearing. * Temperature above 101 F. CARE OF YOUR GROIN INCISION; * Bruising or purple discoloration of the skin near the puncture site is common. * You may shower only, no bathtub bathing for 5 days. Be careful to avoid slipping as your leg may feel stiff. * If a closure device was used on your femoral artery, please see the attached guide regarding care of the device and your leg. * Leave dressing on FOR 24 hours. CARE OF YOUR WRIST INCISION; * Bruising or purple discoloration of the skin near the puncture site is common. * You may shower. * DO NOT submerge wrist. * Leave dressing on FOR 24 hours. BARRINGTON WALTERS MD Nov 02, 2022 11:32
--- NOTE | 2022-11-02 11:38 | Cardiac Cath Report ---
Cardiac Cath Report Physician (s)/Toolroom Helper (s) Physician BARRINGTON NEWMAN MD Pre-Procedure Diagnosis Pre-Procedure Diagnosis: Coronary artery disease with angina pectoris Post-Procedure Note Procedure Start Date: Nov 02, 2022 Name of Procedure: Left heart catheterization Vein graft angiogram WILKINS angiogram IFR to the vein graft to the circumflex artery Findings/Procedure Note PROCEDURE NOTE: 57-year-old gentleman with a history of coronary artery disease, CABG, has been having chest pain, had an abnormal stress test, cardiac catheterization was advised After explaining the procedure to the patient, all pros and cons were explained, all questions were answered. The patient signed the consent and then he was placed on the cardiac catheterization laboratory. Groin was prepped SL fashion local anesthesia was used. Sheath placed in the artery. Ceferino right and left catheter were used to access the coronary system.Vein Graft evaluated. WILKINS evaluated. Patient received 5000 units of heparin, Ceferino right guide was used, engage the vein graft to the circumflex and ramus intermedius artery. iFR was measured and it was 0.99 and then I readjusted the guide and measured IFR again through the ostium of the vein graft and it was 0.99 then I disengage the guide from the graft and The wire in the graft and remeasured and IFR was 0.99. At the end of the procedure the sheath was removed. Closure device was deployed FINDINGS: Hemodynamics LV did not cross the aortic valve Aorta 120/61 mean of 65 ANATOMY: Left Main has ostial stenosis Left Anterior Descending has severe stenosis/total occlusion, WILKINS to the LAD is patent with excellent flow distally Left Circumflex has total occlusion at the midportion, the vein graft to the obtuse marginal and ramus intermedius is patent with excellent flow distally Right Coronary Artery has 90% stenosis at the midportion, the vein graft to the right coronary artery is patent, has 50% stenosis distally nonobstructive disease WILKINS angiogram showed patent WILKINS to LAD with excellent flow distally Vein Graft evaluation Vein graft to the right coronary artery is patent, distally has 50% stenosis nonobstructive disease Vein graft/jump graft to the obtuse marginal and ramus intermedius is patent, has ostial 50% stenosis, IFR was 0.99 through the ostium of the vein graft CONCLUSION: Severe zuni coronary artery disease with patent WILKINS to LAD. Patent vein graft to the right coronary artery with 50 to 60% stenosis distally nonobstructive disease of the zuni right coronary artery has 90% stenosis in the mid portion, the artery has dual supply Vein graft to the obtuse marginal and ramus intermedius is patent, has 50% ostial stenosis, IFR was 0.99 DISCUSSION AND RECOMMENDATION: Continue to maximize medical therapy. No intervention is warranted Anesthesia Type: Conscious Sedation Estimated blood loss (mL): 30 ml Contrast Amount: 90 ml Total Radiation Dose: 1273 mGy Post-Procedure Diagnosis Post-operative diagnosis: Chest pain Coronary artery disease Hypertension Hyperlipidemia BARRINGTON NEWMAN MD Nov 02, 2022 11:38
[2022-11-02] MEDS ORDERED: PATIENT MAY USE OWN MEDS, ALL PO SCH (11:45)
== END 2022-11-02 17:00 ==
LOC: CATH 07:52 → SDC 11:25 → CATH 17:00
PROVIDERS: ATTEND Internal Medicine Cardiovascular Disease
DX: I25.119 Atherosclerotic heart disease of native coronary artery with unspecified angina pectoris (principal); E78.5 Hyperlipidemia, unspecified; E66.9 Obesity, unspecified; I97.89 Other postprocedural complications and disorders of the circulatory system, not elsewhere classified; I10 Essential (primary) hypertension; I48.91 Unspecified atrial fibrillation; I65.23 Occlusion and stenosis of bilateral carotid arteries; R22.42 Localized swelling, mass and lump, left lower limb; E78.2 Mixed hyperlipidemia; Z68.34 Body mass index [BMI] 34.0-34.9, adult; Z87.891 Personal history of nicotine dependence; Z79.899 Other long term (current) drug therapy; Z79.01 Long term (current) use of anticoagulants
CPT/HCPCS: 71045; 80053; 80061; 81000; 85027; 85610; 85730; 87081; 93005; 93455; 93571; C1760; C1769; C1887; C1894; 36415